=== PATIENT | male | born 1965 | race American Indian/Alaskan Native ===

== ENCOUNTER 2022-03-26 10:40 | Outpatient (CLI) | payer BC ==
--- NOTE | 2022-03-26 15:24 | Nuclear Medicine Report ---
Renal Scan HISTORY: Reported renal mass on the left kidney, here to evaluate renal function prior to surgical th erapy. TECHNIQUE: Patient was given 5 mCi of technetium MAG3. COMPARISON: None FINDINGS: Right kidney: Normal radiotracer uptake without retention. Split function is 54% with ERPF MAG3 of 37 .5. Time activity curve appears normal. The time of half max was not properly calculated on this exam but visually from the time/activity curve is on the order of roughly 4 or less minutes which is norm al. Left kidney: Normal radiotracer uptake without retention. Split function is 46%. ERPF MAG3 is 32. Caesar e activity curve appears normal. The time of half max was again not properly calculated but appears t o be less than 4 minutes which is normal. IMPRESSION: Unremarkable exam. Signer Name: Quan Kumar MD Signed: 03/26/2022 3:20 PM Workstation Name: [email or web address]
== END 2022-03-26 10:41 | disposition home or self-care (01) ==
LOC: NM 10:40
PROVIDERS: ATTEND Internal Medicine
DX: C64.2 Malignant neoplasm of left kidney, except renal pelvis (principal)
CPT/HCPCS: 78707; A9562